=== PATIENT | male | born 1975 | race Caucasian/White ===

== ENCOUNTER 2016-11-29 18:08 | Emergency (ER) | payer OTHER ==
[~2016-11-29] VITALS: Ht 180.3 cm; Wt 90.9 kg
[2016-11-29 18:15] VITALS: BP 153/102; PULSE 82; RESP 22; O2SAT 99
[2016-11-29 18:39] LABS: BASOPHILS % (AUTO) 0.6 % (0-3); EOSINOPHILS % (AUTO) 8.1 % (0-5); MONOCYTES % (AUTO) 7.5 % (4-12); Mean Corpuscular Volume 90.4 fL (81-100); NEUTROPHILS % (AUTO) 59.7 % (40-74); Platelet Count 241 bil/L (150-400)
--- NOTE | 2016-11-29 18:45 | ED.REPORT ---
HPI-Chest Pain 40 and Over Date of Service Nov 29, 2016 ED Provider: Abilio Villeda MD History of Present Illness: JACKIE Pt is a 41 year old male presenting to the ED complaining of intermittent sharp burning chest pain radiating down his left arm onset this morning. Associated symptoms include tingling in his left arm, leg aches, fatigue, tightness in his legs. Denies SOB, diaphoresis, cough, fever, nausea, vomiting, dyspnea on exertion. He reports that the pain has been worsening over the past hour. He reports that the episodes last for about 10-20 seconds. Today, all day his legs "felt like jello." Hx of chronic leg aches at night. The chest pain is not relieved or exacerbated by anything. Takes Tylenol 2 extra strength or Ibuprofen 600mg daily for the leg aches. He denies hx of heart problems or DVT. Nursing Notes Stated Complaint: LEFT ARM CRISS,CHEST PAIN, LEG ACHES Chief Complaint: Chest Pain Nursing Notes Reviewed: Yes Allergies: Coded Allergies: No Known Allergies (Unverified , 10/07/15) Scheduled Pramipexole Dihydrochloride (Mirapex) 0.125 Mg Tablet 0.125 MG PO QPM Start with 1 tab 2-3 hours before bedtime, if needed after 2-3 days you can increase to 2 tabs General Time Seen by MD: 18:40 Chief Complaint Chest pain Hx Obtained From: Patient Arrived By: Walk-in Sudden in Onset?: No Onset Occurred: 9 - 12 hours ago Symptom Duration: Intermittent Quality: Painful Severity: Current: Moderate Severity: Maximum: Severe Recent Healthcare: No recent doctor visit, No recent hospitalization Similar Sx Previous: No Past Medical History Past Medical History Reports: Hypertension Past Surgical History hip 4 years, gallbladder removed and wisdom teeth knee surgery Family History Mother had a heart attack last week, and has a stent, 66. Father has 3 or 4 stents and a bypass in his 40s, also has a DVT. Smoking History Never Smoker Social History Alcohol Use: Denies alcohol use Drug Use: Denies drug use Other Social History: Occupation lives with , works at [employer] Ambulatory Status Independent Review of Systems Constitutional: Reports: Fatigue Respiratory: Denies: Non-productive cough, Shortness of breath Cardiovascular: Reports: Chest pain, Denies: Dyspnea on exertion GI: Denies: Nausea, Vomiting Musculoskeletal: Reports: Extremity pain Skin: Denies Diaphoresis Neurologic: Reports: Numbness Complete sys rev & neg: except as marked. Physical Exam Initial Vital Signs Vital Signs (First) Date Time Temp Pulse Resp B/P Pulse Ox O2 Delivery O2 Flow Rate FiO2 11/29/16 18:15 36.4 82 22 153/102 99 11/29/16 19:56 Nasal Cannula 2 Initial VS: Reviewed, Vital signs abnormal (HTN) Head / Eyes: Atraumatic, Normocephalic, PERRL ENT: Mucous membranes moist, Conjunctiva normal, No scleral icterus Extremities: Vascular intact, Neuro intact, No swelling, No tenderness Skin: Warm, Dry, No cyanosis Neurologic: Alert, Oriented, Nonfocal Psychiatric: Mood/affect normal, Behavior normal, Normal thought content General/Constitutional: Awake, Alert, No acute distress, Well appearing Respiratory / Chest: Breath sounds NL, Breath sounds = bilat, No respiratory distress, No rales, No rhonchi, No wheezing, No stridor, No chest tenderness Cardiovascular: Heart rate NL, Regular rhythm, Heart sounds NL, No murmurs, Peripheral circulation NL, Pulses = bilaterally, No gross BP differential Abdomen: Soft, Non-tender, No guarding, No rebound, BS normoactive, No distention Interpretation & Diagnostics Lab Results Interpretation Result Diagram: 11/29/160 11/29/16 1830 Test 11/29/16 18:30 11/29/16 20:19 White Blood Count 8.6th/mm3 (3.8-10.1) Red Blood Count 4.67mil/mm3 (4.40-5.80) Hemoglobin 14.5g/dL (13.8-17.2) Hematocrit 42.2% (41.0-50.0) Mean Corpuscular Volume 90.4fL (81-100) Mean Corpuscular Hemoglobin 31.0pg (27.0-35.0) Mean Corpuscular Hemoglobin Concent 34.4% (32.0-37.0) Red Cell Distribution Width 13.1% (12.3-15.4) Platelet Count 241bil/L (150-400) Neutrophils (%) (Auto) 59.7% (40-74) Lymphocytes (%) (Auto) 23.9% (14-46) Monocytes (%) (Auto) 7.5% (4-12) Eosinophils (%) (Auto) 8.1% (0-5) Basophils (%) (Auto) 0.6% (0-3) D-Dimer < 0.5mg/L (<0.50) Sodium Level 139mEq/L (134-144) Potassium Level 3.8mEq/L (3.5-5.2) Chloride Level 100mEq/L (97-108) Carbon Dioxide Level 24mmol/L (18-29) Blood Urea Nitrogen 20mg/dL (6-24) Creatinine 1.22mg/dL (0.76-1.27) Estimat Glomerular Filtration Rate 70mL/min (>59) Glucose Level 99mg/dL (60-99) Calcium Level 9.3mg/dL (8.5-10.1) Magnesium Level 2.0mg/dL (1.6-2.6) Total Bilirubin 0.2mg/dL (0.0-1.2) Aspartate Amino Transf (AST/SGOT) 33U/L (0-50) Alanine Aminotransferase (ALT/SGPT) 36U/L (0-44) Alkaline Phosphatase 65U/L (25-150) Total Protein 7.8g/dL (6.4-8.4) Albumin 4.7g/dL (3.4-5.0) Hold Cummings Top Tube Received (Received) Troponin T < 0.010ug/L (0.0-0.011) Lab Results Interpretation: CBC normal CMP normal Troponin #1 negative Troponin #2 negative D-dimer negative ECG Interpretation ECG Interpretation: No abnormalities or prior EKG for comparison. Time: 18:25 Interpreted by: ED physician Normal ECG Interpretation: Normal ECG w/ rate of... (72), Normal sinus rhythm X-Ray Chest Interpretation Chest Xray Interpretation: IMPRESSION: No acute cardiopulmonary findings. Dictated by: Jayshree Jansen M.D. on 11/29/2016 at 18:48 View: Portable, 1 view Interpretation / Wet Read by: Interpret - Radiologist Re-Eval/Medical Decision Med Decision/Clinical Course This is a 41-year-old male without prior history of heart disease with his risk factors of significant family history, who presents with atypical chest pain lasting a few seconds at most at a time just been recurring off and on throughout the day. It is nonexertional, this occasional left tingling in the left arm. Breath, no diaphoresis, the symptoms are not clearly pleuritic. He denies prior history of similar symptoms. His only other complaint is a severe history of restless legs has been chronic, reports both legs feel "full, intense. He has not however noted any swelling, and numbness evident on exam. he has a normal physical exam-and has normal O2 sat, heart rate. He has no findings of heart failure, and I do not appreciate visible signs of venous thromboembolism on his evaluation. EKG is normal. His symptoms are highly atypical with short duration lasting only a few seconds. He had serial troponins that were negative. D-dimer is negative. Received 0.5 mg Dilaudid and aspirin, relief of symptoms. At this point a dangerous etiology has not been determined. He has low risk chest pain, and does not or admission the setting of normal EKG serial troponins. I think can be discharged with follow-up. Given his family history ultimate stress test would not be unreasonable, but it is not absolutely indicated given the atypical nature of his symptoms. I have given him a PCP to follow-up to consider stress testing. Additionally, thinks is because the patient most of the long history of restless leg, the indicates this as well and indicates it is very severe. His electrolytes are normal. He has tried nonpharmacological manners, so I am prescribing a trial of pramipexole. Routine precautions reviewed. Source of Hx: Old records Time of Eval: 21:20 Patient Status: Condition improved Re-Evaluation/Progress Note: Discussed lab results and medication list. Differential Diagnosis: Positive: Chest pain, acute, Negative: Acute coronary syndrome, Acute myocardial infarct, Congestive heart failure, Dysrhythmia, Esophageal rupture, Gun shot wound chest, Hiatal hernia, Hypertroph cardiomyopathy, Lillian-Ordoñez syndrome, Mitral stenosis, Pneumonia, Pneumothorax, Pulmonary edema, Pulmonary embolism, Rib fracture, Stab wound chest Counseled Regarding: Diagnosis, Lab results, Need for follow-up, When/why to return to ED Discharge & Departure Primary Impression: Chest pain Chest pain type: unspecified Qualified Code: R07.9 - Chest pain, unspecified Discharge Condition All VS Reviewed: Yes Condition: Improved Additional Instructions: 1. A dangerous cause of the chest pain was not identified. 2. Your heart tests were normal with no markers of a heart attack. He additionally U at tests looking for a blood clot in the lungs and other dangerous causes of chest pain-however none were identified. 3. Activities as tolerated. 4. You can take hydrocodone 1-2 tabs if needed for pain. Use sparingly. I recommend starting with only a single tab. Since you take Tylenol at bedtime- take either this medicine Or Tylenol, but do not take both as it contains Tylenol. However you could use this medicine during the day, and then take either the Tylenol or the this medicine at bedtime without winding up taking too much Tylenol. Note: Hydrocodone contains a narcotic and causes some drowsiness. No driving for at least 4-6 hours after taking. 5. Given the short duration of her symptoms, stress testing is not mandatory. However, given her family history it is reasonable to follow up with a primary care physician and to have them set up for "stress testing". He can call Dr. Rizo's office for an appointment. 6. Return if new worsening symptoms. 7. For your restless legs you can try parmipexole 0.125mg 2-3 hours before bedtime. After 3 days of taking, if needed you can increase the dose to two 0.125mg tabs. Referrals: NOPCP (PCP) Mari Rizo MD Attestation Portions of this note were transcribed by Carol Ann Ferrera. I, Dr. Villeda personally performed the history, physical exam and medical decision-making; I reviewed and confirmed the accuracy of the information in the transcribed note. Signed by: Komal Contreras, 11/29/2016 and 2139. copies to: Mari Rizo MD, Matthew F MD Nov 29, 2016 18:45 CAROL ANN FERRERA Nov 29, 2016 19:03
--- NOTE | 2016-11-29 18:50 | DRSVH ---
PROCEDURE: X-RAY CHEST ONE VIEW, PORTABLE ([id number]) INDICATIONS: chest pain TECHNIQUE: One view of the chest was acquired. COMPARISON: [facility], CR, XR CHEST 2VW, 10/07/2015, 15:03. FINDINGS: Surgical changes and devices: None. Lungs and pleura: No pleural effusions or pneumothorax. Lung volumes are low. Lungs are clear. Mediastinum: Mediastinal contours appear normal. Heart size is normal. Bones and chest wall: No suspicious bony lesions. Overlying soft tissues appear unremarkable. IMPRESSION: No acute cardiopulmonary findings. Dictated by: Jayshree Jansen M.D. on 11/29/2016 at 18:48 Approved by: Jayshree Jansen M.D. on 11/29/2016 at 18:48
[2016-11-29] MEDS ORDERED: HYDROmorphone 0.5 mg/0.5 mL iSecure Syringe IVPUSH ONE (19:05)
[2016-11-29 19:14] LABS: TROPONIN T < 0.010 ug/L (0.0-0.011)
[2016-11-29 19:56] VITALS: BP 129/71; PULSE 65; RESP 18; O2SAT 99
[2016-11-29] MEDS ORDERED: _HYDROcodone/APAP 5-325 mg Tablet PO PRN (21:25)
[2016-11-29] MEDS ORDERED: PRAM0.122 PO (21:33)
[2016-11-29 21:50] VITALS: BP 118/65; PULSE 72; RESP 16; O2SAT 99
== END 2016-11-29 21:51 | disposition home or self-care (01) ==
LOC: SED 18:08
DX: R07.9 Chest pain, unspecified (principal); M79.604 Pain in right leg; M79.605 Pain in left leg; R20.2 Paresthesia of skin; R53.83 Other fatigue; R61 Generalized hyperhidrosis; I10 Essential (primary) hypertension
CPT/HCPCS: 36415; 71010; 80053; 83735; 84484; 85025; 85379; 93005; 96374; 99285; J1170